=== PATIENT | female | born 1995 ===

== ENCOUNTER 2016-07-05 10:28 | Emergency (ER) | payer SELFPAY | END 2016-07-05 11:15 | disposition left against medical advice (07) | LOC: ED 10:28 | DX: Z53.21 Procedure and treatment not carried out due to patient leaving prior to being seen by health care provider (principal) ==

== ENCOUNTER 2016-07-05 12:38 | Emergency (ER) | payer SELFPAY | END 2016-07-05 13:40 | disposition left against medical advice (07) | LOC: ED 12:38 | DX: Z53.21 Procedure and treatment not carried out due to patient leaving prior to being seen by health care provider (principal) ==